=== PATIENT | male | born 1960 | race Caucasian/White ===

== ENCOUNTER → 2019-06-04 07:04 | Outpatient (CLI) | payer BC, SELFPAY ==
--- NOTE | 2019-06-04 07:06 | DI.US.S_ITS ---
PROCEDURE: US ABDOMEN COMPLETE INDICATIONS: BLOATING TECHNIQUE: Real-time scanning was performed of the abdominal and retroperitoneal organs, with image documentation. COMPARISON: [facility], CT, ABDOMEN/PELVIS WITH CONTRAST, 03/02/2010, 2:25. FINDINGS: Liver: The liver demonstrates normal size. The liver demonstrates generalized increased echogenicity. This decreases ultrasound sensitivity for detection of hepatic masses. Within the left lobe of the liver, there is a hypoechoic nonvascular lesion seen that measures 6.5 x 5.3 x 6 cm. Areas of likely focal sparing can be seen adjacent to the gallbladder, measuring up to 1.5 and 1.8 cm. Gallbladder: No findings of gallstones or sludge are seen. The gallbladder wall is not thickened, measuring 3 mm or less. No specific pericholecystic fluid is seen. The sonographic Rojas sign is negative. Biliary ducts: Intrahepatic bile ducts are non-dilated. Extrahepatic bile duct caliber measures 5 mm. Normal is 6-7 mm or less in diameter, or 10 mm or less post-cholecystectomy. Pancreas: Visualized portions of the pancreas are sonographically normal. Spleen: Spleen is normal in size and homogeneous in echotexture. Kidneys: Kidneys are normal in size and echotexture. Right kidney measures 11.2 cm long; left kidney measures 10.6 cm long. No hydronephrosis or nephrolithiasis. No solid masses. There is a 2.2 cm left cortical cyst seen. Aorta: Visualized aorta is normal in caliber at less than 3 cm. Iliacs: Proximal common iliac arteries are normal in caliber at less than 2.5 cm. IVC: Intrahepatic inferior vena cava is patent. Miscellaneous: No free abdominal fluid. At the area of pain within the periumbilical region, no focal abnormalities are seen. IMPRESSION: Fatty liver is seen. Areas of focal fatty sparing can be seen. There is a low echogenicity region seen within the left lobe of the liver that measures up to 6.5 cm, which may represent an additional focus of focal fatty sparing. If clinically appropriate, please consider a dedicated liver protocol MRI (without and with contrast) for further evaluation (assuming that there is no contraindication). A 2.2 cm left renal cyst is incidentally noted. No abnormalities can be seen within the region of periumbilical pain. Dictated by: Hayden Saucedo M.D. on 06/04/2019 at 9:09 Approved by: Hayden Saucedo M.D. on 06/04/2019 at 9:14
[2019-06-04 08:11] LABS: Hematocrit 49.6 % (41-53); Mean Corpuscular HGB Conc 34.4 % (30-36); Mean Corpuscular Hemoglobin 33.5 PG (26-34); Mean Corpuscular Volume 97.5 fL (80-100); Platelet Count 164 X10^3/uL (150-400); Red Blood Cell Count 5.09 X10^6/uL (4.5-5.9)
[2019-06-04 09:00] LABS: Alanine Aminotransferase 146 IU/L (21-72); Albumin 4.4 g/dL (3.5-5.0); Albumin Globulin Ratio 1.8 (1.0-2.8); Alkaline Phosphatase 66 U/L (38-126); Aspartate Aminotransferase 130 IU/L (17-59); BUN Creatinine Ratio 14.5 (6-22); Bilirubin Total 0.8 mg/dL (0.2-1.3); Blood Urea Nitrogen 16 mg/dL (9-20); Calcium 9.6 mg/dL (8.4-10.2); Carbon Dioxide 25 mmol/L (22-32); Chloride 108 mmol/L (98-107); Cholesterol 206 mg/dL (140-199); Estimated Glomerular Filt Rate > 60.0 mL/min (>60); Globulin 2.5 g/dL (1.7-4.1); Glucose 104 mg/dL (70-100); HDL Cholesterol 46 mg/dL (40-60); HEMOLYSIS < 15 (0-50); Potassium 4.8 mmol/L (3.4-5.1); Sodium 141 mmol/L (137-145); Total Protein 6.9 g/dL (6.3-8.2); Triglycerides 452 mg/dL (35-150); Uric Acid 8.1 mg/dL (3.5-8.5)
[2019-06-04 09:26] LABS: TSH w/ Reflex to FT4 1.27 uIU/mL (0.47-4.68)
[2019-06-04 10:05] LABS: Folate 15.3 ng/mL (2.76-20.0); Vitamin B12 651 pg/mL (239-931)
== END ==
PROVIDERS: PCP Nurse Practitioner Family; Visit Provider Nurse Practitioner Family
DX: R14.0 Abdominal distension (gaseous) (principal); K76.0 Fatty (change of) liver, not elsewhere classified; N28.1 Cyst of kidney, acquired; R53.83 Other fatigue; M10.9 Gout, unspecified; Z13.6 Encounter for screening for cardiovascular disorders
CPT/HCPCS: 36415; 76700; 80053; 80061; 82607; 82746; 84443; 84550; 85027

== ENCOUNTER → 2019-06-06 08:00 | Outpatient (CLI) | payer BC, SELFPAY ==
[2019-06-08 17:21] LABS: Hepatitis A Antibody IgM NONREACTIVE (NONREACTIVE); Hepatitis Acute Panel Interp 0.02; Hepatitis B Core Antibody IgM NONREACTIVE (NONREACTIVE); Hepatitis B Surface Antigen NONREACTIVE (NONREACTIVE); Hepatitis C Antibody NONREACTIVE
[2019-06-08 19:02] LABS: ANA Screen, IFA Negative (Negative)
== END ==
PROVIDERS: PCP Nurse Practitioner Family; Visit Provider Nurse Practitioner Family
DX: R94.5 Abnormal results of liver function studies (principal); R74.8 Abnormal levels of other serum enzymes
CPT/HCPCS: 36415; 80074; 86038; 86255; 86376

== ENCOUNTER → 2019-06-09 06:01 | Outpatient (CLI) | payer BC, SELFPAY ==
--- NOTE | 2019-06-09 06:03 | DI.MRI.S_ITS ---
PROCEDURE: MR ABDOMEN WO/W CON INDICATIONS: Hypoechoic lesion in the liver on ultrasound. TECHNIQUE: Coronal HASTE, axial 2D FLASH in- and [id number]; axial breath-hold T2 FSE. Dynamic axial VIBE during the administration of contrast; post-contrast coronal VIBE or 2D FLASH with fat saturation from the hepatic dome to the iliac crests. Optional diffusion weighted imaging and ADC may be performed. COMPARISON: [facility], CT, ABDOMEN/PELVIS WITH CONTRAST, 03/02/2010, 2:25. [facility], US, US ABDOMEN COMPLETE, 06/04/2019, 7:20. FINDINGS: Image quality: Excellent. Lung bases: No basal pleural effusions. Heart size is normal. Solid organs: There is diffuse signal dropout within the liver on [id number] imaging consistent with fatty infiltration. There are areas of relative sparing along the gallbladder fossa including a confluent region posteriorly in the left hepatic lobe within segments 2 and 3 measuring up to 5.4 x 5.5 cm in transverse dimension which corresponds to the findings on recent ultrasound. This demonstrates no mass effect on adjacent crossing vessels or differential enhancement. No evidence of associated washout. There are also a few small hepatic cysts noted. The gallbladder appears within normal limits without gallstones. No biliary ductal dilatation. Pancreas is normal in morphology without pancreatic duct dilatation. No peripancreatic edema. Spleen is normal in size and enhancement. No adrenal nodules. Kidneys demonstrate no hydronephrosis. There are multiple small bilateral renal cysts. Nodes and vessels: No retroperitoneal or mesenteric adenopathy by size criteria. Aorta and inferior vena cava are normal in size. Bowel and peritoneum: Visualized bowel loops are normal in caliber. No free fluid. Bones and soft tissues: No ventral hernias. Bone marrow is normal in overall signal. IMPRESSION: 1. Hepatic steatosis with areas of focal fatty sparing including a confluent region in the posterior left hepatic lobe corresponding to the findings on recent ultrasound. The appearance is similar to the prior CT of 03/02/10. No evidence of a hepatoma. Dictated by: Greg Ross M.D. on 06/09/2019 at 8:33 Approved by: Greg Ross M.D. on 06/09/2019 at 8:46
== END ==
PROVIDERS: PCP Nurse Practitioner Family; Visit Provider Nurse Practitioner Family
DX: R93.2 Abnormal findings on diagnostic imaging of liver and biliary tract (principal); K76.0 Fatty (change of) liver, not elsewhere classified
CPT/HCPCS: 74183

== ENCOUNTER 2019-07-10 07:25 | Day surgery (SDC) | payer BC, SELFPAY ==
--- NOTE | 2019-07-10 | PATH_ITS ---
[facility] Accession Number: [id number] . 01 Material submitted: . rectum - RECTAL POLYP AT 10 CM . 01 Clinical history: . SCREENING COLONOSCOPY . 02 Diagnosis: Rectum, Polyp At 10 CM, Biopsy: Hyperplastic polyp. [facility]/07/13/2019 . 02 Electronically signed: . Janie Pardo MD, Pathologist NPI- [id number] . 01 Gross description: . RECTAL POLYP AT 10 CM: Received in formalin is 1 fragment(s) of fishman, soft tissue measuring 0.5 x 0.4 x 0.3 cm submitted entirely in 1 cassette(s) /CKI /CKI . 02 Pathologist provided ICD-10: K62.1 . 02 CPT . 785356 Performed at: 01 [facility] [address], [place], [place] [id number] MD Greg Han MD Phone: [phone] Performed at: 02 [facility] [address] [place], [place] [id number] MD Janie Pardo MD Phone: [phone]
[2019-07-10] MEDS: SODIUM CHLORIDE 0.9% 1,000 ML 100 ML IV (07:45)
[2019-07-10 07:55] VITALS: BP 128/85; PULSE 90; RESP 16; TEMP 37.2; O2SAT 97; BMI 28.6
--- NOTE | 2019-07-10 09:03 | PM.HP.1 ---
History of Present Illness Date Patient Seen: 07/10/19 Time Patient Seen: 09:04 Chief complaint: [id number] SCREENING COLONOSCOPY Narrative: Patient here for screening colonoscopy has had a prior exam with no polyps noted. He is asymptomatic. Patient History Medical History Elevated cholesterol (Acute) Gout (Acute) Kidney stones (Acute) Social History household members: spouse Smoking Status: Current every day smoker (1/2 ppd) Tobacco: How many years used: 30 quit status: considering quitting (Patient given smoking cessation handouts) second hand exposure: No alcohol intake: current (3 beers 4x/week) substance use type: does not use Family & Social History Social History: household members spouse Tobacco & Substance use: Smoking Status Current every day smoker alcohol intake current Meds Home Medications Medication Instructions Recorded Confirmed Type allopurinol 300 mg tablet 300 mg PO DAILY tab 05/01/19 07/10/19 History diclofenac sodium 75 mg 75 mg PO DAILY PRN tab 05/01/19 07/10/19 History tablet,delayed release varicella-zoster glycoE [id number] 50 mcg IM ONCE #1 each 05/01/19 06/04/19 Rx adj(PF) 50 mcg/0.5 mL IM susp, kit colchicine 0.6 mg tablet 0.6 mg PO QDAY PRN #90 tab 05/07/19 06/04/19 Rx colchicine 0.6 mg PO DAILY PRN 07/10/19 07/10/19 History Allergies Allergy/AdvReac Type Severity Reaction Status Date / Time No Known Drug Allergies Allergy Verified 07/10/19 07:38 Review of Systems Review of Systems All systems reviewed & are unremarkable except as noted in HPI and below Exam Vital Signs (past 8 hours): - 07/10/19 07:55 Temperature 98.9 F Pulse Rate 90 Respiratory Rate 16 Blood Pressure 128/85 Pulse Oximetry 97 Oxygen Delivery Method Room Air Narrative Exam Narrative: Patient is alert and oriented vital signs are stable Lungs are clear with no rales or wheezes Heart regular rhythm no murmur Abdomen no organomegaly no tenderness Rectal will be done at colonoscopy Assessment & Plan Assessment & Plan narrative: Patient here for screening colonoscopy is asymptomatic. He has no questions understands the procedure
[2019-07-10] MEDS: fentaNYL 250 MCG/5 ML INJ IV (09:22)
[2019-07-10] MEDS: MIDAZOLAM 5 MG/5 ML VIAL IV (09:22)
--- NOTE | 2019-07-10 09:36 | PM.OP.ENDO ---
Operative Date/Time/Diagnoses Date of procedure: 07/10/19 Time of procedure: 09:36 Pre-op diagnosis: Screening colonoscopy Post-op diagnosis: other (2 mm rectal polyp 10 cm from the anal verge likely a hyperplastic polyp) Procedure & Clinicians Study performed: Total colonoscopy to the cecum removal of rectal polyp at 10 cm 2 mm polyp probably hyperplastic doubt it is an adenoma also patient has significant sigmoid diverticulosis Same procedure as scheduled: Yes Surgeon: Michael Davenport Procedure Notes SCOAP/Timeout: Was done Procedure in detail: The patient was properly identified during surgical pause he was given a total of 4 mg of Versed 150 micro g of fentanyl throughout the procedure which was well-tolerated. The flexible fiberoptic colonoscope inserted transanally to the cecum patient has significant sigmoid diverticulosis with no diverticulitis patient had 1 polyp identified a 2 mm hyperplastic polyp at 10 cm in the rectum this was removed and submitted no other polyps or tumors were identified procedure was well tolerated Scope withdrawal time: 10 Sedation minutes: 20 Findings: diverticulosis and polyp (2 mm rectal polyp at 10 cm) Specimen(s): other (Small rectal polyp) Complications: none Impression: Diverticulosis sigmoid and hyperplastic polyp in the rectum 2 mm Recommendations: Colonscopy in 5 years Disposition: PACU
[2019-07-10 09:37] VITALS: BP 98/61; PULSE 75; RESP 18; TEMP 36.5; O2SAT 98
[2019-07-10 09:41] VITALS: BP 98/65; PULSE 71; RESP 15; TEMP 36.5; O2SAT 97
[2019-07-10 09:46] VITALS: BP 103/67; PULSE 64; RESP 18; TEMP 36.5; O2SAT 98
[2019-07-10 09:49] VITALS: BP 100/69; PULSE 71; RESP 24; TEMP 36.5; O2SAT 97
== END 2019-07-10 10:05 | disposition home or self-care (01) ==
PROVIDERS: PCP Nurse Practitioner Family; Visit Provider Surgery
PROC: 0DJD8ZZ Inspection of Lower Intestinal Tract, Via Natural or Artificial Opening Endoscopic (ICD-10-PCS; CPT 45378; principal; 2019-07-10 08:30)
DX: Z12.11 Encounter for screening for malignant neoplasm of colon (principal); K57.30 Diverticulosis of large intestine without perforation or abscess without bleeding; K62.1 Rectal polyp; E78.00 Pure hypercholesterolemia, unspecified; F17.210 Nicotine dependence, cigarettes, uncomplicated
CPT/HCPCS: 45380; 99152; J2250; J3010

== ENCOUNTER → 2020-06-30 15:37 | Outpatient (CLI) | payer BC, SELFPAY ==
[2020-06-30 15:57] LABS: Add Manual Diff / Slide Review NO; Basophils Absolute Auto 100 /uL (0-100); Basophils Percent Auto 0.9 % (0-2); Eosinophils Absolute Auto 200 /uL (0-450); Eosinophils Percent Auto 1.7 % (2-4); Hematocrit 48.7 % (41-53); Hemoglobin 16.5 g/dL (13.5-17.5); Lymphocytes Absolute Auto 2200 /uL (1100-4500); Lymphocytes Percent Auto 17.1 % (25-40); Mean Corpuscular Hemoglobin 33.4 PG (26-34); Mean Corpuscular Volume 98.3 fL (80-100); Monocytes Absolute Auto 900 /uL (0-900); Monocytes Percent Auto 7.1 % (3-14); Neutrophils Absolute Auto 9500 /uL (1500-7000); Neutrophils Percent Auto 73.2 % (50-75); Platelet Count 189 X10^3/uL (150-400); Red Blood Cell Count 4.95 X10^6/uL (4.5-5.9); Red Cell Distribution Width 12.8 % (11.6-14.8)
[2020-06-30 16:09] LABS: Alanine Aminotransferase 57 IU/L (<50); Albumin 4.4 g/dL (3.5-5.0); Albumin Globulin Ratio 1.5 (1.0-2.8); Alkaline Phosphatase 75 U/L (38-126); Aspartate Aminotransferase 44 IU/L (17-59); BUN Creatinine Ratio 13.5 (6-22); Bilirubin Total 0.8 mg/dL (0.2-1.3); Blood Urea Nitrogen 12 mg/dL (9-20); Calcium 9.9 mg/dL (8.4-10.2); Carbon Dioxide 25 mmol/L (22-32); Chloride 106 mmol/L (98-107); Estimated Glomerular Filt Rate > 60.0 mL/min (>60); Glucose 93 mg/dL (70-100); HEMOLYSIS 30 (0-50); Potassium 4.8 mmol/L (3.4-5.1); Sodium 139 mmol/L (137-145); Total Protein 7.4 g/dL (6.3-8.2)
== END ==
PROVIDERS: PCP Nurse Practitioner Family; Referring Provider Physician Assistant; Visit Provider Physician Assistant
DX: L03.90 Cellulitis, unspecified (principal)
CPT/HCPCS: 36415; 80053; 85025

== ENCOUNTER → 2021-02-17 08:27 | Outpatient (CLI) | payer BC, SELFPAY ==
[2021-02-17 09:53] LABS: Alanine Aminotransferase 44 IU/L (<50); Albumin 4.1 g/dL (3.5-5.0); Albumin Globulin Ratio 1.6 (1.0-2.8); Alkaline Phosphatase 62 U/L (38-126); Aspartate Aminotransferase 35 IU/L (17-59); Bilirubin Total 0.4 mg/dL (0.2-1.3); Bilirubin Unconjugated 0.3 mg/dL (0.0-1.1); Cholesterol 164 mg/dL (140-199); Globulin 2.6 g/dL (1.7-4.1); HDL Cholesterol 42 mg/dL (40-60); HEMOLYSIS < 15 (0-50); LDL Cholesterol Calculated 74 mg/dL (<100); Total Protein 6.7 g/dL (6.3-8.2); Triglycerides 241 mg/dL (35-150)
== END ==
PROVIDERS: PCP Nurse Practitioner Family; Referring Provider Nurse Practitioner Family; Visit Provider Nurse Practitioner Family
DX: R74.8 Abnormal levels of other serum enzymes (principal); E78.1 Pure hyperglyceridemia
CPT/HCPCS: 36415; 80061; 80076

== ENCOUNTER → 2021-04-05 12:15 | Outpatient (CLI) | payer BC, SELFPAY ==
[2021-04-05] MEDS: COVID-19 VACC #1, MRNA(MOD) 100 MCG/0.5 ML VIAL IM (12:22)
== END ==
PROVIDERS: PCP Nurse Practitioner Family; Visit Provider Internal Medicine
DX: Z23 Encounter for immunization (principal)
CPT/HCPCS: 0011A; 91301

== ENCOUNTER → 2021-05-05 07:48 | Outpatient (CLI) | payer BC, SELFPAY ==
[2021-05-05] MEDS: COVID-19 VACC #2, MRNA(MOD) 100 MCG/0.5 ML VIAL IM (07:57)
== END ==
PROVIDERS: PCP Nurse Practitioner Family; Visit Provider Internal Medicine
DX: Z23 Encounter for immunization (principal)
CPT/HCPCS: 0012A; 91301

== ENCOUNTER 2021-06-13 09:15 | Emergency (ER) | payer BC, SELFPAY ==
--- NOTE | 2021-06-13 09:33 | DI.RAD.S_ITS ---
PROCEDURE: XR ANKLE LT MIN 3V INDICATIONS: pain injury TECHNIQUE: 3 views of the ankle were acquired. COMPARISON: [facility], CR, XR CHEST 1V, 06/13/2021, 9:37. [facility], , ANKLE 3 VIEWS RIGHT, 04/21/2009, 17:52. FINDINGS: Bones: No fractures or dislocations. Ankle mortise is normally aligned. No suspicious bony lesions. The talar dome demonstrates no ana abnormality. A plantar calcaneal spur is seen. Soft tissues: No tibiotalar joint effusion. Achilles tendon appears normal. IMPRESSION: Ankle plain films within normal limits for age, with degenerative changes seen. If there is point tenderness (or other clinical suspicion for a fracture not seen on these images) then a dedicated CT could be considered for further evaluation, if clinically appropriate. Dictated by: Hayden Saucedo M.D. on 06/13/2021 at 9:00 Approved by: Hayden Saucedo M.D. on 06/13/2021 at 9:01
--- NOTE | 2021-06-13 09:33 | DI.US.S_ITS ---
PROCEDURE: US ABDOMEN LIMITED INDICATIONS: RIGHT UPPER QUADRANT PAIN TECHNIQUE: Real-time scanning was performed of the abdominal and retroperitoneal organs, with image documentation. COMPARISON: [facility], US, US ABDOMEN COMPLETE, 06/04/2019, 7:20. FINDINGS: Liver: Liver is normal in size and mildly heterogeneous in echotexture, predominantly fatty infiltrated to a significant degree. There is a simple appearing 1 cm anterior right hepatic lobe cyst and 2 areas of hypoechoic geographic morphology structures adjacent to the gallbladder fossa and at the medial left hepatic lobe, measuring up to 2.0 cm and 5.6 cm, respectively. The appearance is highly suggestive of focal sparing from otherwise diffuse prominent fatty infiltration. Gallbladder: Normal. Biliary ducts: Intrahepatic bile ducts are non-dilated. Extrahepatic bile duct caliber measures 4.7 mm. Normal is 6-7 mm or less in diameter, or 10 mm or less post-cholecystectomy. Pancreas: Visualized portions of the pancreas are sonographically normal. Spleen: Spleen is normal in size and homogeneous in echotexture. Kidneys: Kidneys are normal in size and echotexture. Right kidney measures 11.2 cm long; left kidney measures 10.6 cm long. No hydronephrosis or nephrolithiasis. No solid masses. Aorta: Visualized aorta is normal in caliber at less than 3 cm. Iliacs: Proximal common iliac arteries are normal in caliber at less than 2.5 cm. IVC: Intrahepatic inferior vena cava is patent. Miscellaneous: No free abdominal fluid. IMPRESSION: Prominent fatty infiltration throughout the liver, with 2 areas of geographic fatty sparing resulting in low echotexture liver parenchyma as discussed above. Please correlate for etiology of hepatic steatosis. No additional abnormality found. Dictated by: Sathish Watkins M.D. on 06/13/2021 at 10:34 Approved by: Sathish Watkins M.D. on 06/13/2021 at 10:38
--- NOTE | 2021-06-13 09:36 | ED_ITS ---
HPI - Chest Pain General Chief Complaint: Chest Pain Stated Complaint: chest pain for 1 week Time Seen by Provider: 06/13/21 09:27 History of Present Illness HPI narrative: Patient is a 60-year-old male with history of gout presenting a with epigastric pain on going over the last 4 days. He said he noticed it while he was doing yd work. It is fairly constant is does not seem to get any worse with exertion or better with rest. It is nonradiating. He denies any nausea or vomiting. He says maybe he experiences some shortness of breath with exertion but not significantly. He also took today is left ankle 2 days ago signs acute feels like might be getting worse as well. He is able to ambulate on it. Duration: constant Onset: during exertion Pain location: epigastric Severity: mild Related Data Previous Rx's Medication Instructions Recorded varicella-zoster glycoE [id number] 50 mcg IM ONCE #1 each 05/01/19 adj(PF) 50 mcg/0.5 mL IM susp, kit (Shingrix (PF)) colchicine 0.6 mg tablet 0.6 mg PO DAILY PRN #90 tab 06/21/20 right wrist splint #1 ea 06/21/20 meloxicam 15 mg tablet 15 mg PO DAILY #90 tab 02/14/21 allopurinol 300 mg tablet 300 mg PO DAILY #90 tab 02/24/21 Allergies Allergy/AdvReac Type Severity Reaction Status Date / Time No Known Drug Allergies Allergy Verified 06/30/20 14:14 Review of Systems Review of Systems Narrative: GENERAL: Denies chills, fatigue, malaise, fever, sweats, travel HEENT: Denies sinus pain, ear pain, sore throat, difficulty swallowing, neck pain RESPIRATORY: Denies dyspnea, cough, wheezing, hemoptysis, sputum. CARDIOVASCULAR:+ epigastric pain, denies palpitations or dizziness GASTROINTESTINAL: Denies nausea, vomiting, abdominal pain, diarrhea, constipation, melena. : Denies dysuria, frequency, incontinence, hematuria, urinary retention, flank pain. MUSCULOSKELETAL: Left ankle pain and swelling SKIN: No rash, no erythema, no pruritus NEUROLOGIC: Denies weakness, dizziness, headache, numbness, change in speech, confusion PSYCHIATRIC: No concerning psychosocial issues. 12 point review of systems is negative except for those stated above and HPI Patient History Medical History (Updated 06/13/21 @ 12:09 by Anamaria Beltrán DO) Elevated cholesterol Elevated liver enzymes Gout Kidney stones Knee pain, bilateral Right wrist pain Social History household members: spouse Smoking Status: Current every day smoker Tobacco: How many years used: 30 quit status: considering quitting (Patient given smoking cessation handouts) second hand exposure: No alcohol intake: current (3 beers 4x/week) substance use type: does not use Smoking Status: Current every day smoker (1/2 ppd) Exam Initial Vital Signs Initial Vital Signs: Vital Signs Temperature 98.3 F 06/13/21 09:57 Pulse Rate 80 06/13/21 09:57 Respiratory Rate 16 06/13/21 09:57 Blood Pressure 130/77 06/13/21 09:57 Pulse Oximetry 99 06/13/21 09:57 GENERAL: Alert well-appearing 60-year-old male and in no acute distress. HEENT: Head atraumatic,EOMI, pupils reactive, face symmetric, moist mucous membranes CARDIOVASCULAR: Regular rate and rhythm without murmurs, rubs or gallops. RESPIRATORY: Breath sounds equal bilaterally, no wheezes rales or rhonchi. ABDOMEN: Soft, epigastric pain mild right upper quadrant tenderness very slight Rojas sign no guarding or rebound EXTREMITIES: Normal range of motion, no clubbing or edema. Neurovascularly intact NEUROLOGICAL: Alert and oriented x4.Normal gait and speech. SKIN: Warm, dry, no laceration, no petechiae, no rashes or lesions. Scores HEART Score Heart Score history: Moderately Suspicious Heart Score EKG: Normal Heart Score Age: 45-64 years old Heart Score risk factors: 1-2 risk factors Heart Score troponin: < or = to normal limit Heart Score Total: 3 Course Orders Ordered: Discontinued Medications Aspirin (Aspirin 81 Mg Chew Tab) 324 mg PO NOW ONE Stop: 06/13/21 09:34 Last Admin: 06/13/21 09:52 Dose: 324 mg Documented by: [email or web address] Nitroglycerin (Nitroglycerin 0.4 Mg Sl Tab) 0.4 mg SL NOW ONE Stop: 06/13/21 10:55 Last Admin: 06/13/21 11:29 Dose: 0.4 mg Documented by: [email or web address] Pantoprazole Sodium (Pantoprazole 40 Mg Vial) 40 mg IV NOW ONE Stop: 06/13/21 10:55 Last Admin: 06/13/21 11:29 Dose: 40 mg Documented by: ELIZABETH Vital Signs Vital signs: Vital Signs - 8 hr 06/13/21 11:30 06/13/21 12:00 Pulse Rate 71 77 Respiratory Rate 27 H Blood Pressure 130/75 136/77 Pulse Oximetry 98 97 MDM - Chest Pain Lab Data Result diagrams: 06/13/21 10:03 06/13/21 10:03 Labs: Lab Results 06/13/21 06/13/21 Range/Units 10:03 10:03 WBC 10.1 (4.5-11.0) X10^3/uL RBC 4.70 (4.5-5.9) X10^6/uL Hgb 15.9 (13.5-17.5) g/dL Hct 46.7 (41-53) % MCV 99.4 (80-100) fL MCH 33.9 (26-34) PG MCHC 34.1 (30-36) % RDW 13.0 (11.6-14.8) % Plt Count 178 (150-400) X10^3/uL Neut % (Auto) 73.5 (50-75) % Lymph % (Auto) 15.8 L (25-40) % [place] % (Auto) 8.7 (3-14) % Eos % (Auto) 1.2 L (2-4) % Baso % (Auto) 0.8 (0-2) % Neut # (Auto) 7400 H (0812-1728) /uL Lymph # (Auto) 1600 (3820-3440) /uL [place] # (Auto) 900 (0-900) /uL Eos # (Auto) 100 (0-450) /uL Baso # (Auto) 100 (0-100) /uL Sodium 140 (137-145) mmol/L Potassium 4.5 (3.4-5.1) mmol/L Chloride 109 H (98-107) mmol/L Carbon Dioxide 27 (22-32) mmol/L BUN 15 (9-20) mg/dL Creatinine 0.88 (0.66-1.25) mg/dL Estimated GFR > 60.0 (>60) mL/min BUN/Creatinine Ratio 17.0 (6-22) Glucose 97 (70-100) mg/dL Calcium 9.3 (8.4-10.2) mg/dL Total Bilirubin 0.8 (0.2-1.3) mg/dL AST 30 (17-59) IU/L ALT 34 (<50) IU/L Alkaline Phosphatase 69 (38-126) U/L Total Creatine Kinase 53 L (55-170) U/L CK-MB (CK-2) TNP CK-MB (CK-2) Rel Index TNP Troponin I < 0.012 (0.01-0.034) ng/mL Total Protein 7.0 (6.3-8.2) g/dL Albumin 4.0 (3.5-5.0) g/dL Globulin 3.0 (1.7-4.1) g/dL Albumin/Globulin Ratio 1.3 (1.0-2.8) Lipase 50 (23-300) U/L Imaging Data Chest x-ray: Radiologist's Impression: PROCEDURE: XR CHEST 1V INDICATIONS: chest pain TECHNIQUE: One view of the chest was acquired. COMPARISON: [facility], CR, XR ANKLE LT MIN 3V, 06/13/2021, 9:37. [facility], CR, CHEST 2 VIEW, 12/05/2009, 13:17. FINDINGS: Surgical changes and devices: None. Lungs and pleura: Lungs are clear. No pleural effusions or pneumothorax. Mediastinum: Mediastinal contours appear normal. Heart size is normal. Bones and chest wall: No suspicious bony lesions. S-shaped scoliotic curvature is seen. Age-appropriate bony degenerative changes are seen. Overlying soft tissues appear unremarkable. IMPRESSION: Portable chest within normal limits for age. Dictated by: Hayden Saucedo M.D. on 06/13/2021 at 8:59 US - abdomen: Radiologist's Impression: PROCEDURE: US ABDOMEN LIMITED INDICATIONS: RIGHT UPPER QUADRANT PAIN TECHNIQUE: Real-time scanning was performed of the abdominal and retroperitoneal organs, with image documentation. COMPARISON: [facility], US, US ABDOMEN COMPLETE, 06/04/2019, 7:20. FINDINGS: Liver: Liver is normal in size and mildly heterogeneous in echotexture, predominantly fatty infiltrated to a significant degree. There is a simple appearing 1 cm anterior right hepatic lobe cyst and 2 areas of hypoechoic geographic morphology structures adjacent to the gallbladder fossa and at the medial left hepatic lobe, measuring up to 2.0 cm and 5.6 cm, respectively. The appearance is highly suggestive of focal sparing from otherwise diffuse prominent fatty infiltration. Gallbladder: Normal. Biliary ducts: Intrahepatic bile ducts are non-dilated. Extrahepatic bile duct caliber measures 4.7 mm. Normal is 6-7 mm or less in diameter, or 10 mm or less post-cholecystectomy. Pancreas: Visualized portions of the pancreas are sonographically normal. Spleen: Spleen is normal in size and homogeneous in echotexture. Kidneys: Kidneys are normal in size and echotexture. Right kidney measures 11.2 cm long; left kidney measures 10.6 cm long. No hydronephrosis or nephrolithiasis. No solid masses. Aorta: Visualized aorta is normal in caliber at less than 3 cm. Iliacs: Proximal common iliac arteries are normal in caliber at less than 2.5 cm. IVC: Intrahepatic inferior vena cava is patent. Miscellaneous: No free abdominal fluid. IMPRESSION: Prominent fatty infiltration throughout the liver, with 2 areas of geographic fatty sparing resulting in low echotexture liver parenchyma as disc ussed above. Please correlate for etiology of hepatic steatosis. No additional abnormality found. Dictated by: Sathish Watkins M.D. on 06/13/2021 at 10:34 Extremity x-ray #1: Radiologist's Impression: PROCEDURE: XR ANKLE LT MIN 3V INDICATIONS: pain injury TECHNIQUE: 3 views of the ankle were acquired. COMPARISON: [facility], CR, XR CHEST 1V, 06/13/2021, 9:37. [facility], CR, ANKLE 3 VIEWS RIGHT, 04/21/2009, 17:52. FINDINGS: Bones: No fractures or dislocations. Ankle mortise is normally aligned. No suspicious bony lesions. The talar dome demonstrates no ana abnormality. A plantar c alcaneal spur is seen. Soft tissues: No tibiotalar joint effusion. Achilles tendon appears normal. IMPRESSION: Ankle plain films within normal limits for age, with degenerative changes seen. If there is point tenderness (or other clinical suspicion for a fracture not seen on these images) then a dedicated CT could be considered for further evaluation, if clinically appropriate. Dictated by: Hayden Saucedo M.D. on 06/13/2021 at 9:00 ECG Data Interpretation: EKG 1. Sinus rhythm rate 75 MD interval 168 QRS [address] changes no T-wave inversion EKG 2. Normal sinus rhythm rate 72 MD interval 168 QRS [address] changes MDM Narrative Medical decision making narrative: Patient has epigastric pain it is relatively unchanged with Toradol and nitro. He has a negative his ultrasound and normal blood work. There is concern for is coronary artery disease. He has a heart score of 3. His I have offered him admission to the hospital with stress test is versus outpatient follow-up. Patient's symptoms have been ongoing for a number of days they do not seem to be getting any worse. The real reason he is here is her his worsening ankle pain. The patient is opting to go home. I have discussed both with he and his importance of staying and that MRI and coronary artery disease has not been completely ruled out. Strongly recommended stress test. I did call primary care provider to see if we could get 1 set up for him soon as possible however they said it could take up to a number of weeks to get it approved. Patient still is electing to go home. I discussed all findings with the patient and , Education has been performed regarding treatment plan, diagnosis, warning signs and symptoms and all concerns have been addressed. Verbally agree with and understood all of the above. The patient is clinically sober, free from distracting injury, appears to have intact insight, judgment and reason. Does not meet criteria for involuntary hospitalization. Patient has the capacity to make decisions. Discharge Plan Departure Patient Disposition: Home Clinical Impression: Atypical chest pain Left ankle sprain Qualifiers: Encounter type: initial encounter Involved ligament of ankle: unspecified ligament Qualified Code(s): S93.402A - Sprain of unspecified ligament of left ankle, initial encounter Instructions: DI for Atypical Chest Pain Activity Restrictions/Additional Instructions: *You have been diagnosed with atypical chest pain *What to do: At this time I strongly advise you to have a stress test. You were offered to stay in the hospital and have a stress test done here however opting to go home. Please call PCP office today to schedule up appointment as soon as possible. If you are having any worsening or changing your chest discomfort please call 911 return to the emergency department immediately. You have not been completely ruled out for cardiac disease. However blood work an EKG today are overall reassuring. Please use crutches as needed for left ankle sprain. Elevate and ice. May start weight-bearing as tolerated. *Continue to take medications as directed *Follow up with your primary care provider, call today to schedule appointment as soon as possible *Return to ER if you should have any new, worsening or concerning symptoms Prescriptions: No Action meloxicam 15 mg tablet 15 mg PO DAILY Qty: 90 RF: 1 allopurinol 300 mg tablet 300 mg PO DAILY Qty: 90 RF: 0 Shingrix (PF) 50 mcg/0.5 mL suspension for reconstitution 50 mcg IM ONCE Qty: 1 RF: 0 (DME) right wrist splint Qty: 1 RF: 0 colchicine 0.6 mg tablet 0.6 mg PO DAILY PRN (Reason: Gout flare) Qty: 90 RF: 0 Referrals: Aminata Wilcox ARNP [Primary Care Provider] -
[2021-06-13] MEDS: ASPIRIN 81 MG CHEW TAB 324 MG PO (09:52)
[2021-06-13 09:57] VITALS: BP 130/77; PULSE 80; RESP 16; TEMP 36.8; O2SAT 99; BMI 30.8
[2021-06-13 10:09] LABS: Add Manual Diff / Slide Review NO; Basophils Absolute Auto 100 /uL (0-100); Basophils Percent Auto 0.8 % (0-2); Eosinophils Absolute Auto 100 /uL (0-450); Eosinophils Percent Auto 1.2 % (2-4); Hematocrit 46.7 % (41-53); Hemoglobin 15.9 g/dL (13.5-17.5); Lymphocytes Absolute Auto 1600 /uL (1100-4500); Lymphocytes Percent Auto 15.8 % (25-40); Mean Corpuscular HGB Conc 34.1 % (30-36); Mean Corpuscular Hemoglobin 33.9 PG (26-34); Mean Corpuscular Volume 99.4 fL (80-100); Monocytes Absolute Auto 900 /uL (0-900); Monocytes Percent Auto 8.7 % (3-14); Neutrophils Absolute Auto 7400 /uL (1500-7000); Neutrophils Percent Auto 73.5 % (50-75); Platelet Count 178 X10^3/uL (150-400); White Blood Cell Count 10.1 X10^3/uL (4.5-11.0)
[2021-06-13 10:21] LABS: Alanine Aminotransferase 34 IU/L (<50); Albumin Globulin Ratio 1.3 (1.0-2.8); Alkaline Phosphatase 69 U/L (38-126); Aspartate Aminotransferase 30 IU/L (17-59); Bilirubin Total 0.8 mg/dL (0.2-1.3); Blood Urea Nitrogen 15 mg/dL (9-20); Calcium 9.3 mg/dL (8.4-10.2); Carbon Dioxide 27 mmol/L (22-32); Chloride 109 mmol/L (98-107); Creatine Kinase 53 U/L (55-170); Estimated Glomerular Filt Rate > 60.0 mL/min (>60); Glucose 97 mg/dL (70-100); HEMOLYSIS < 15 (0-50); Lipase 50 U/L (23-300); Potassium 4.5 mmol/L (3.4-5.1); Sodium 140 mmol/L (137-145)
[2021-06-13 10:32] LABS: Troponin I < 0.012 ng/mL (0.01-0.034)
[2021-06-13 10:59] VITALS: PULSE 76; O2SAT 99
[2021-06-13 11:00] VITALS: BP 130/61; PULSE 77; O2SAT 100
[2021-06-13 11:23] VITALS: BP 130/61; PULSE 89; RESP 14; O2SAT 100
[2021-06-13] MEDS: NITROGLYCERIN 0.4 MG SL TAB SL (11:29)
[2021-06-13] MEDS: PANTOPRAZOLE 40 MG VIAL IV (11:29)
[2021-06-13 11:30] VITALS: BP 130/75; PULSE 71; O2SAT 98
[2021-06-13 12:00] VITALS: BP 136/77; PULSE 77; RESP 27; O2SAT 97
== END 2021-06-13 12:15 | disposition home or self-care (01) ==
PROVIDERS: Emergency Provider Emergency Medicine; PCP Nurse Practitioner Family
DX: R07.89 Other chest pain (principal); S93.402A Sprain of unspecified ligament of left ankle, initial encounter
CPT/HCPCS: 36415; 71045; 73610; 76705; 80053; 82550; 83690; 84484; 85025; 93005; 93010; 96374; 99284; C9113

== ENCOUNTER → 2021-06-27 15:42 | Outpatient (CLI) | payer BC, SELFPAY ==
[2021-06-27 16:42] LABS: Uric Acid 7.5 mg/dL (3.5-8.5)
== END ==
PROVIDERS: PCP Nurse Practitioner Family; Referring Provider Nurse Practitioner Family; Visit Provider Nurse Practitioner Family
DX: M10.9 Gout, unspecified (principal)
CPT/HCPCS: 36415; 84550

== ENCOUNTER 2021-07-09 18:27 | Observation (INO) | payer BC, SELFPAY ==
[2021-07-09] VITALS (8 sets, daily range): BP systolic 118–156; BP diastolic 69–94; PULSE 55–86; RESP 10–22; TEMP 36.4–37.2; O2SAT 95–99; BMI 27.1
--- NOTE | 2021-07-09 18:41 | DI.RAD.S_ITS ---
PROCEDURE: XR CHEST 1V INDICATIONS: chest pain TECHNIQUE: One view of the chest was acquired. COMPARISON: [facility], CR, XR CHEST 1V, 06/13/2021, 9:37. FINDINGS: Surgical changes and devices: None. Lungs and pleura: Lungs are clear. No pleural effusions or pneumothorax. Mediastinum: Mediastinal contours appear normal. Heart size is normal. Bones and chest wall: No suspicious bony lesions. Overlying soft tissues appear unremarkable. IMPRESSION: No acute disease. Dictated by: Dmitriy Jacinto M.D. on 07/09/2021 at 19:29 Approved by: Dmitriy Jacinto M.D. on 07/09/2021 at 19:29
[2021-07-09 18:47] LABS: Add Manual Diff / Slide Review NO; Basophils Absolute Auto 100 /uL (0-100); Basophils Percent Auto 0.7 % (0-2); Eosinophils Absolute Auto 400 /uL (0-450); Hemoglobin 15.8 g/dL (13.5-17.5); Lymphocytes Absolute Auto 2500 /uL (1100-4500); Lymphocytes Percent Auto 30.8 % (25-40); Mean Corpuscular HGB Conc 34.3 % (30-36); Mean Corpuscular Hemoglobin 33.3 PG (26-34); Mean Corpuscular Volume 97.3 fL (80-100); Monocytes Absolute Auto 500 /uL (0-900); Monocytes Percent Auto 6.7 % (3-14); Neutrophils Absolute Auto 4600 /uL (1500-7000); Neutrophils Percent Auto 56.8 % (50-75); Platelet Count 181 X10^3/uL (150-400); Red Blood Cell Count 4.73 X10^6/uL (4.5-5.9); Red Cell Distribution Width 12.9 % (11.6-14.8); White Blood Cell Count 8.2 X10^3/uL (4.5-11.0)
[2021-07-09 18:57] LABS: Alanine Aminotransferase 21 IU/L (<50); Albumin Globulin Ratio 1.5 (1.0-2.8); Alkaline Phosphatase 73 U/L (38-126); Aspartate Aminotransferase 24 IU/L (17-59); BUN Creatinine Ratio 17.2 (6-22); Bilirubin Total 0.5 mg/dL (0.2-1.3); Blood Urea Nitrogen 16 mg/dL (9-20); Calcium 9.4 mg/dL (8.4-10.2); Carbon Dioxide 24 mmol/L (22-32); Chloride 110 mmol/L (98-107); Creatine Kinase 101 U/L (55-170); Estimated Glomerular Filt Rate > 60.0 mL/min (>60); Globulin 2.6 g/dL (1.7-4.1); Glucose 132 mg/dL (70-100); Lipase 73 U/L (23-300); Potassium 3.7 mmol/L (3.4-5.1); Sodium 142 mmol/L (137-145); Total Protein 6.6 g/dL (6.3-8.2)
--- NOTE | 2021-07-09 19:03 | ED_ITS ---
HPI - Chest Pain General Chief Complaint: Chest Pain Stated Complaint: CHEST PAIN/LIGHTHEADED/NAUSEA Time Seen by Provider: 07/09/21 18:48 Source: patient Mode of arrival: Ambulatory Limitations: no limitations History of Present Illness HPI narrative: Patient is a 60-year-old male who presents with left-sided chest pain and ongoing nausea. He was actually seen and evaluated here June 13Her ankle pain and epigastric pain. At that time it is epigastric pain was worse while he was doing yd work is. I recommended that he stay in the hospital and get a stress test however my he opted to go home and follow-up. He did see his primary care provider he has a stress test scheduled however over the last 4 days he has continue to feel nauseated and has some left-sided discomfort. It is difficult for him to describe he says it is worse on the left side worse when he palpates it, it does not hurt when he moves his left arm. He describes it as a pressure. It is not constant. It is nonradiating. Does not seem to be exertional. Related Data Home Medications Medication Instructions Recorded Confirmed allopurinol 100 mg tablet 400 mg PO DAILY 07/09/21 07/09/21 Previous Rx's Medication Instructions Recorded varicella-zoster glycoE [id number] 50 mcg IM ONCE #1 each 05/01/19 adj(PF) 50 mcg/0.5 mL IM susp, kit (Shingrix (PF)) right wrist splint #1 ea 06/21/20 meloxicam 15 mg tablet 15 mg PO DAILY #90 tab 02/14/21 allopurinol 300 mg tablet 300 mg PO DAILY #90 tab 06/27/21 colchicine 0.6 mg tablet 0.6 mg PO DAILY PRN #90 tab 06/27/21 Allergies Allergy/AdvReac Type Severity Reaction Status Date / Time No Known Drug Allergies Allergy Verified 06/30/20 14:14 Review of Systems Review of Systems Narrative: GENERAL: Denies chills, fatigue, malaise, fever, sweats, travel HEENT: Denies sinus pain, ear pain, sore throat, difficulty swallowing, neck pain RESPIRATORY: Denies dyspnea, cough, wheezing, hemoptysis, sputum. CARDIOVASCULAR: See HPI GASTROINTESTINAL: Denies nausea, vomiting, abdominal pain, diarrhea, constipation, melena. : Denies dysuria, frequency, incontinence, hematuria, urinary retention, flank pain. MUSCULOSKELETAL: Denies weakness, joint pain, or bony pain SKIN: No rash, no erythema, no pruritus NEUROLOGIC: Denies weakness, dizziness, headache, numbness, change in speech, confusion PSYCHIATRIC: No concerning psychosocial issues. 12 point review of systems is negative except for those stated above and HPI Patient History Medical History (Updated 07/09/21 @ 22:49 by EVAN Lyons-) Elevated cholesterol Elevated liver enzymes Fatty infiltration of liver (05/2021) Gout History of alcohol abuse Kidney stones Knee pain, bilateral Right wrist pain Tobacco abuse Surgical History (Updated 07/09/21 @ 22:49 by EVAN Lyons-VENESSA) History of carpal tunnel surgery of right wrist Family History (Updated 07/09/21 @ 22:51 by EVAN Lyons-VENESSA) Mother Cancer Father Alzheimer's dementia Social History household members: spouse and children Smoking Status: Current every day smoker Tobacco: How many years used: 30 quit status: considering quitting (Patient given smoking cessation handouts) second hand exposure: No alcohol intake: former substance use type: does not use Smoking Status: Current every day smoker alcohol intake frequency: 0-2 drinks per day Substance Use Type: does not use Exam Initial Vital Signs Initial Vital Signs: Vital Signs Pulse Rate 86 07/09/21 18:32 Pulse Oximetry 97 07/09/21 18:32 GENERAL: 60-year-old male appears well HEENT: Head atraumatic,EOMI, pupils reactive, face symmetric, moist mucous membranes CARDIOVASCULAR: Regular rate and rhythm without murmurs, rubs or gallops. Pain is not reproduced arm RESPIRATORY: Breath sounds equal bilaterally, no wheezes rales or rhonchi. ABDOMEN: Soft, nontender. Normoactive bowel sounds all 4 quadrants. No guarding or rebound. : No CVA tenderness EXTREMITIES: Normal range of motion, no clubbing or edema. Neurovascularly inta ct NEUROLOGICAL: Alert and oriented x4.Normal gait and speech SKIN: Warm, dry, no laceration, no petechiae, no rashes or lesions. Course Orders Ordered: ED Orders 07/09/21 19:56 COVID19 - ADMIT (PHARMACY BENEFIT MANAGER swab/PCR) Stat 07/09/21 20:40 EC echo doppler complete Urgent NM ken perf SPECT rest & str Urgent 07/09/21 20:41 Education, smoking cessation ONGOING 07/09/21 21:05 Troponin I Q8H 07/10/21 04:45 Troponin I Q8H Acetaminophen (Acetaminophen 325 Mg Tablet) 650 mg PO Q6HR PRN PRN Reason: Fever/Mild Pain (1-3) Al Hydrox/Mg Hydrox/Simethicone (Mag Hydrox/Alum/Simeth 30 Ml Udc) 30 ml PO Q6HR PRN PRN Reason: Dyspepsia Diclofenac Sodium (Diclofenac 1% Gel 100 Gm) 1 applic TOP QID PRN PRN Reason: Pain, Mild (1-3) Enoxaparin Sodium (Enoxaparin 40 Mg/0.4 Ml Syringe) 40 mg SUBCUT DAILY [facility] Sodium Chloride (Normal Saline 0.9%) 1,000 mls @ 84 mls/hr IV CONT ANGELINE Last Admin: 07/09/21 22:26 Dose: 84 mls/hr Documented by: JUDY Clindamycin Phosphate (Cleocin) 600 mg in 50 mls @ 50 mls/hr IV Q8H ANGELINE Last Infusion: 07/09/21 23:50 Dose: 0 mls/hr Documented by: Admin: 07/09/21 22:43 Dose: 50 mls/hr Documented by: JUDY Levofloxacin (Levaquin) 750 mg in 150 mls @ 100 mls/hr IV Q24H ANGELINE Last Infusion: 07/10/21 01:30 Dose: 0 mls/hr Documented by: Admin: 07/09/21 23:47 Dose: 100 mls/hr Documented by: YESSY Magnesium Hydroxide (Magnesium Hydroxide 30 Ml Udc) 30 ml PO DAILY PRN PRN Reason: Constipation Morphine Sulfate (Morphine 2 Mg/Ml Inj) 2 mg IV Q5MIN PRN PRN Reason: Chest Pain Naloxone HCl (Naloxone 0.4 Mg/Ml Vial) 0.2 mg IV Q2MIN PRN PRN Reason: Opiate Reversal Nitroglycerin (Nitroglycerin 0.4 Mg Sl Tab) 0.4 mg SL [id number] PRN PRN Reason: Chest Pain Ondansetron HCl (Ondansetron 4 Mg Odt) 4 mg PO Q8HR PRN PRN Reason: Nausea And Vomiting Discontinued Medications Aspirin (Aspirin 81 Mg Chew Tab) 324 mg PO NOW ONE Stop: 07/09/21 19:06 Last Admin: 07/09/21 19:18 Dose: 324 mg Documented by: MATT Whittington Hydrox/Mg Hydrox/Simethicone 20 ml/ Lidocaine HCl 15 ml 0 ml PO NOW ONE Stop: 07/09/21 21:59 Last Admin: 07/09/21 22:31 Dose: 10 ml Documented by: JUDY Clindamycin Phosphate (Cleocin) 600 mg in 50 mls @ 50 mls/hr IV Q8H [facility] Last Admin: 07/09/21 23:08 Dose: Not Given Documented by: JUDY Levofloxacin (Levaquin) 750 mg in 150 mls @ 100 mls/hr IV Q24H [facility] Last Admin: 07/09/21 23:09 Dose: Not Given Documented by: JUDY Ketorolac Tromethamine (Ketorolac 30 Mg/Ml Vial) 30 mg IV NOW ONE Stop: 07/09/21 22:01 Last Admin: 07/09/21 22:43 Dose: 30 mg Documented by: JUDY Vital Signs Vital signs: Vital Signs - 8 hr 07/09/21 18:38 Temperature 99.0 F Pulse Rate 76 Respiratory Rate 18 Blood Pressure 138/82 Pulse Oximetry 99 MDM - Chest Pain Lab Data Result diagrams: 07/09/21 18:38 07/09/21 18:38 Labs: Lab Results 07/09/21 07/09/21 07/09/21 Range/Units 18:38 18:38 18:38 WBC 8.2 (4.5-11.0) X10^3/uL RBC 4.73 (4.5-5.9) X10^6/uL Hgb 15.8 (13.5-17.5) g/dL Hct 46.0 (41-53) % MCV 97.3 (80-100) fL MCH 33.3 (26-34) PG MCHC 34.3 (30-36) % RDW 12.9 (11.6-14.8) % Plt Count 181 (150-400) X10^3/uL Neut % (Auto) 56.8 (50-75) % Lymph % (Auto) 30.8 (25-40) % [place] % (Auto) 6.7 (3-14) % Eos % (Auto) 5.0 H (2-4) % Baso % (Auto) 0.7 (0-2) % Neut # (Auto) 4600 (6162-3627) /uL Lymph # (Auto) 2500 (8333-5061) /uL [place] # (Auto) 500 (0-900) /uL Eos # (Auto) 400 (0-450) /uL Baso # (Auto) 100 (0-100) /uL Sodium 142 (137-145) mmol/L Potassium 3.7 (3.4-5.1) mmol/L Chloride 110 H (98-107) mmol/L Carbon Dioxide 24 (22-32) mmol/L BUN 16 (9-20) mg/dL Creatinine 0.93 (0.66-1.25) mg/dL Estimated GFR > 60.0 (>60) mL/min BUN/Creatinine Ratio 17.2 (6-22) Glucose 132 H (70-100) mg/dL Calcium 9.4 (8.4-10.2) mg/dL Magnesium (1.6-2.3) mg/dL Total Bilirubin 0.5 (0.2-1.3) mg/dL AST 24 (17-59) IU/L ALT 21 (<50) IU/L Alkaline Phosphatase 73 (38-126) U/L Total Creatine Kinase 101 (55-170) U/L CK-MB (CK-2) 0.93 (<2.37) ng/mL CK-MB (CK-2) Rel Index 0.9 L (1.5-5.0) % Troponin I < 0.012 (0.01-0.034) ng/mL NT-Pro-B Natriuret Pep (<125) pg/mL Total Protein 6.6 (6.3-8.2) g/dL Albumin 4.0 (3.5-5.0) g/dL Globulin 2.6 (1.7-4.1) g/dL Albumin/Globulin Ratio 1.5 (1.0-2.8) Triglycerides 246 H (35-150) mg/dL Cholesterol 168 (140-199) mg/dL LDL Cholesterol, Calc 87 (<100) mg/dL HDL Cholesterol 32 L (40-60) mg/dL Lipase 73 (23-300) U/L SARS-CoV-2 (PCR) (Negative) 07/09/21 07/09/21 Range/Units 18:38 19:56 WBC (4.5-11.0) X10^3/uL RBC (4.5-5.9) X10^6/uL Hgb (13.5-17.5) g/dL Hct (41-53) % MCV (80-100) fL MCH (26-34) PG MCHC (30-36) % RDW (11.6-14.8) % Plt Count (150-400) X10^3/uL Neut % (Auto) (50-75) % Lymph % (Auto) (25-40) % [place] % (Auto) (3-14) % Eos % (Auto) (2-4) % Baso % (Auto) (0-2) % Neut # (Auto) (1444-1247) /uL Lymph # (Auto) (8539-6944) /uL [place] # (Auto) (0-900) /uL Eos # (Auto) (0-450) /uL Baso # (Auto) (0-100) /uL Sodium (137-145) mmol/L Potassium (3.4-5.1) mmol/L Chloride (98-107) mmol/L Carbon Dioxide (22-32) mmol/L BUN (9-20) mg/dL Creatinine (0.66-1.25) mg/dL Estimated GFR (>60) mL/min BUN/Creatinine Ratio (6-22) Glucose (70-100) mg/dL Calcium (8.4-10.2) mg/dL Magnesium 1.9 (1.6-2.3) mg/dL Total Bilirubin (0.2-1.3) mg/dL AST (17-59) IU/L ALT (<50) IU/L Alkaline Phosphatase (38-126) U/L Total Creatine Kinase (55-170) U/L CK-MB (CK-2) (<2.37) ng/mL CK-MB (CK-2) Rel Index (1.5-5.0) % Troponin I (0.01-0.034) ng/mL NT-Pro-B Natriuret Pep 48 (<125) pg/mL Total Protein (6.3-8.2) g/dL Albumin (3.5-5.0) g/dL Globulin (1.7-4.1) g/dL Albumin/Globulin Ratio (1.0-2.8) Triglycerides (35-150) mg/dL Cholesterol (140-199) mg/dL LDL Cholesterol, Calc (<100) mg/dL HDL Cholesterol (40-60) mg/dL Lipase (23-300) U/L SARS-CoV-2 (PCR) Negative (Negative) Imaging Data Chest x-ray: Radiologist's Impression: PROCEDURE: XR CHEST 1V INDICATIONS: chest pain TECHNIQUE: One view of the chest was acquired. COMPARISON: [facility], , XR CHEST 1V, 06/13/2021, 9:37. FINDINGS: Surgical changes and devices: None. Lungs and pleura: Lungs are clear. No pleural effusions or pneumothorax. Mediastinum: Mediastinal contours appear normal. Heart size is normal. Bones and chest wall: No suspicious bony lesions. Overlying soft tissues appear unremarkable. IMPRESSION: No acute disease. Dictated by: Dmitriy Jacinto M.D. on 07/09/2021 at 19:29 ECG Data Interpretation: Normal sinus rhythm rate 83 NM interval 164 QRS [address] changes similar to previous EKG MDM Narrative Medical decision making narrative: Patient has had ongoing chest discomfort it seems to be changing over the last 4 days. He has a negative troponin and negative EKG. However it is unclear exactly when his stress test is although according to records it looks like they did schedule 1 or were planning on scheduling 1. At this time patient remains agreeable to stay in the hospital for admission and stress test. Andres KERR updated patient's symptoms test results and happily accepted Discharge Plan Departure Patient Disposition: Admitted as Observation Clinical Impression: Chest pain Admit Date/Time: 07/09/21 20:41 Admit Provider: Shellie Campos
[2021-07-09 19:08] LABS: Troponin I < 0.012 ng/mL (0.01-0.034)
[2021-07-09 19:12] LABS: CKMB % Relative Index 0.9 % (1.5-5.0); Creatine Kinase MB 0.93 ng/mL (<2.37); HEMOLYSIS 16 (0-50)
[2021-07-09] MEDS: ASPIRIN 81 MG CHEW TAB 324 MG PO (19:18)
--- NOTE | 2021-07-09 19:41 | PC.NURSE ---
patient states that his left chest hurts when he presses on it. he also states that when he inhales it kind of feels similar to pressing on it. He also states that he feels like something is sitting on his chest.
--- NOTE | 2021-07-09 20:46 | P.HP_ITS ---
History of Present Illness History of Present Illness Date Patient Seen: 07/09/21 Time Patient Seen: 20:46 Chief complaint: CHEST PAIN/LIGHTHEADED/NAUSEA Narrative: Patient is a 60-year-old male antony Alexander who presented to the ED with continueing chest pain. Patient 1st presented to the ED on 06/15/21 complaining of epigastric pain on going over 4 days. Pain while doing yard work, fairly constant is does not seem to get any worse with exertion or be tter with rest, nonradiating, and some shortness of breath with exertion but not significantly. Patients EKG was unremarkable, chest x-ray unremarkable. Discharged with diagnosis of atypical chest pain, recommendations for stress test and further workup. Patient seen by PCP on 07/24/2021: Patient stated his pain resolved after about two weeks. He denied any further epigastric, chest pain or any further associated symptoms. His PCP ordered stress test & echo which have yet to be scheduled/completed. Abdominal ultrasound reveals prominent fatty liver, his liver enzymes had returned to normal however a referral to Gastroenterology was placed. Patient also complains of gout flare, left ankle and continues on allopurinol. When patient presented to the ED today he stated his chest pain had returned. Upon admit he c/o a pressure over the left upper chest area that becomes more painful with palpation in the midclavicular line in the 2nd and 3rd intercostal spaces, but it does not hurt when he moves his left arm. In the mid upper chest area over the sternum patient states that the pain comes and goes, like ?someone is sitting on my chest ?, achy, nonradiating 4/10, better with rest, worsens with activity, goes away when he sleeps, and has been coming and going for the past 3-4 weeks but intensified over the last 4 days he has continue to feel nauseated, lightheaded, and sweaty when the pain occurs. The patient reports that he has a upper cavity infected tooth abscess that his been draining that has been in place for approximately 2-3 months he has been to see his dentist multiple times was placed on amoxicillin for 10 days which he completed approximately 4 days ago. Continues to have pain, discomfort and swelling, with continued drainage that he can taste in his mouth. His dentist is currently away on vacation and he has been unable to get in for removal of the tooth. The patient reports that he has had a history of acid reflux but denies acid taste in his mouth, burning in the esophagus, and takes no medications for this. Patient smokes a half a pack a day and has been smoking for approximately 25 years. Patient also reports that he drink anywhere from 3-4 beers daily, and 6 packs on the weekend for approximately 10 years and quit approximately 2 months ago. Patient denies any cardiac or pulmonary history, reports only a history of gout which she had a recent flare in his left ankle that has resolved but he continues to take allopurinol, takes no other medications. Patient's vitals upon admit patient is slightly febrile temp 99.0?, BP 120/73, HR 66, RR 10, O2 saturation 96% on room air. All patient's laboratory findings were within normal limits CBC, CMP, troponin negative. Patient's chest x-ray was negative for any acute cardiopulmonary processes. 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 x 10-20 years Substance Use Type does not use Meds Home Medications and Allergies Home Medications Medication Instructions Recorded Confirmed Type varicella-zoster glycoE [id number] 50 mcg IM ONCE #1 each 05/01/19 07/09/21 Rx adj(PF) 50 mcg/0.5 mL IM susp, kit (Shingrix (PF)) right wrist splint #1 ea 06/21/20 07/09/21 Rx meloxicam 15 mg tablet 15 mg PO DAILY #90 tab 02/14/21 07/09/21 Rx allopurinol 300 mg tablet 300 mg PO DAILY #90 tab 06/27/21 07/09/21 Rx colchicine 0.6 mg tablet 0.6 mg PO DAILY PRN #90 tab 06/27/21 07/09/21 Rx allopurinol 100 mg tablet 400 mg PO DAILY 07/09/21 07/09/21 History Allergies Allergy/AdvReac Type Severity Reaction Status Date / Time No Known Drug Allergies Allergy Verified 06/30/20 14:14 Review of Systems Review of Systems Narrative: All 12 point systems reviewed with the patient and are negative except otherwise documented. Exam Vital Signs (past 8 hours): - 07/09/21 18:32 07/09/21 18:33 07/09/21 18:38 Temperature 99.0 F Pulse Rate 86 85 76 Respiratory Rate 16 18 Blood Pressure 138/82 138/82 Pulse Oximetry 97 96 99 07/09/21 19:00 07/09/21 19:30 07/09/21 20:00 Temperature Pulse Rate 80 66 66 Respiratory Rate 22 12 10 L Blood Pressure 128/76 127/69 120/73 Pulse Oximetry 96 95 96 Oxygen Delivery Method Room Air Narrative Exam Narrative: General: Patient is a well-developed, well-nourished in no distress at this time. HEENT: Normocephalic, atraumatic, extraocular muscles intact, oral pharynx is clear and mucous membranes are dry. Neck is supple and symmetric, trachea is midline, patient has mild inflammation noted along left jaw line, pre auricular adenopathy and left cervical adenopathy, minimal tenderness with palpation, no thyroid enlargement, nontender, no masses palpated. Negative for JVD Chest: Normal AP diameter and contour without kyphoscoliosis, no nasal flaring, retractions, or tachypneic labored, patient did have pain over the 2nd and 3rd intercostal space on the left side approximately midclavicular line with palpation. Lungs: Auscultation of all lung gonzáles are clear with the exception occansional right upper lobe wheezing. Cardio: S1 & S2 with regular rate and rhythm without murmur, rubs, or gallops, no carotid bruit, no cardiac pulsations present. Abdomen: Soft nontender, negative for organomegaly, or masses. Bowel sounds are present in all 4 quadrants without guarding or rebound, no CVA tenderness. Musculoskeletal: Muscle strength and tone are equal within normal limits, no deformity, crepitus, effusions, cyanosis, clubbing or edema present. Full range of motion intact radial and pedal pulses are normal. Skin: Warm dry and intact without rashes, ulcerations or petechiae. Neuro: Alert and orientated x3, strength is +5/5 in all extremities, sensation to touch intact, no gross deficits noted of cranial nerves. Psych: Patient has a well-kept appearance, appropriate affect, mental status attitude thought context and judgment are appropriate for age. Objective Labs Result Diagrams: 07/09/21 18:38 07/09/21 18:38 Labs: Laboratory Results - last 24 hr 07/09/21 07/09/21 18:38 18:38 WBC 8.2 RBC 4.73 Hgb 15.8 Hct 46.0 MCV 97.3 MCH 33.3 MCHC 34.3 RDW 12.9 Plt Count 181 Neut % (Auto) 56.8 Lymph % (Auto) 30.8 [place] % (Auto) 6.7 Eos % (Auto) 5.0 H Baso % (Auto) 0.7 Neut # (Auto) 4600 Lymph # (Auto) 2500 [place] # (Auto) 500 Eos # (Auto) 400 Baso # (Auto) 100 Sodium 142 Potassium 3.7 Chloride 110 H Carbon Dioxide 24 BUN 16 Creatinine 0.93 Estimated GFR > 60.0 BUN/Creatinine Ratio 17.2 Glucose 132 H Calcium 9.4 Total Bilirubin 0.5 AST 24 ALT 21 Alkaline Phosphatase 73 Total Creatine Kinase 101 CK-MB (CK-2) 0.93 CK-MB (CK-2) Rel Index 0.9 L Troponin I < 0.012 Total Protein 6.6 Albumin 4.0 Globulin 2.6 Albumin/Globulin Ratio 1.5 Lipase 73 Assessment & Plan Assessment & Plan narrative: Patient is a 60-year-old male antony Alexander who is admitted for recurrent chest pain, after repeat visits to the emergency room and PCP. Patient's history of tobacco and alcohol abuse put him at high risk for cardiovascular of event, he has a heart score of 2 and is admitted for chest pain rule out. 1. Acute chest pain-recurrent, acute , present on admission -Rule out myocardial ischemia, ACS, CAD, aortic dissection -Monitor for hypertensive emergencies with acute end-organ damage, ventricular t achycardia, unstable SVT, hypertension, angina or WA, heart failure, renal function. My suspicion for ACS/WA is low though the patient does have risk factors a history of alcohol abuse and current tobacco abuse. The patient's left-sided chest pain I believe to be costochondritis, I also suspect possible acid reflux and I have ordered a GI cocktail. I also suspect patient's dental abscess infection is contributing to the overall clinical picture and addresses below. -patient's vital signs and labs were all unremarkable with a negative troponin upon admit, EKG normal sinus rhythm with a rate of [address] or T-wave changes. Unchanged from previous EKG. Patient's triglycerides 246, HDL 32, but total cholesterol was 168. Patient's proBNP was within normal limits. -Bird Vasc score:0 , heart score:2 -patient admitted on tele, V/S Q 4, I&O Q8, weight daily, diet:Regular -sublingual nitro glycerin 0.4 mg, aspirin 325 mg, as needed -Goals:O2 to keep O2 sats greater than 92%, potassium > 4 and Mag > 2 -trend troponin x3, telemedicine -stress test and echo ordered for tomorrow -GI cocktail once to evaluate if it improves his chest pain at all. -labs lipid panel, PT/INR/PTT, Mag -recommend upon discharge patient follow-up with Gastroenterology for further evaluation. 2. Dental abscess, with dental caries, acute on chronic, present on admission -upper front left tooth -SOFA:1 patient is not septic, Temp 99.0 on admit -patient reports that he has had a dental abscess-infection for 2-3 months that is actively draining in his mouth, and patient finished 10 day amoxicillin 4 days ago. Four days ago is when his chest pain increased in severity. Patient's dentist is out of town on vacation and he is unable to get in and see him. I suspect that this is contributing to the patient's clinical picture. -Blood cultures x2 pending -discussed smoking cessation, patient to swish and spit salt water after eating. -treat with clindamycin 600 mg IV Q 8 hours plus levofloxacin 750 mg Q 24 hours- based on up-to-date recommendation -normal saline at 84 cc/HR for hydration -patient will need outpatient follow-up with his dentist. 3. Acute costochondritis, mild, acute, present on admission -left 2nd and 3rd intercostal space at [facility] -Ordered Toradol 30mg, Voltaren gel to chest area -patient education provided regarding costochondritis 2. Gout, chronic, present on admission -patient's left ankle flare has resolved -continue patient's allopurinol Code status: Full code COVID vaccination: Moderna April 2021 Surrogate decision maker: Nevaeh Alexander (spouse) DVT/VTE prophylaxis: Lovenox 40 mg and SCDs Estimated length of stay less than 2 midnights I have utilized all available immediate resources to obtain, update, or review the patient's current medications. I confirmed that the patient's advanced care plan is present, Code status is documented and/or surrogate decision maker is listed in the patient's medical record. Scores GCS Carlin coma scale eye opening: Spontaneous [place] coma scale verbal response: Orientated [place] coma scale motor response: Obey commands [place] coma scale total score: 15 CHADS-VASc Congestive heart failure: no Hypertension: no Age 75 years or older: no Diabetes mellitus: no Stroke, TIA, or TE: no Vascular disease: no Age 65 to 74 years: no Sex category (female): Male CHADS-VASc Score: 0 Wells' Criteria for PE Clinical signs and symptoms of DVT: No PE is #1 Dx or equally likely: No Heart rate > 100: No Immobilization at least 3 days or surg in previous 4 weeks: No History of PE or DVT: No Hemoptysis: No Malignancy w/Treatment within 6 months or palliative: No Wells' PE Score total: 0
[2021-07-09 20:52] LABS: COVID19 - ADMIT (NP swab/PCR) Negative (Negative)
[2021-07-09 21:02] LABS: Magnesium 1.9 mg/dL (1.6-2.3)
[2021-07-09 21:03] LABS: Cholesterol 168 mg/dL (140-199); HDL Cholesterol 32 mg/dL (40-60); LDL Cholesterol Calculated 87 mg/dL (<100); Triglycerides 246 mg/dL (35-150)
--- NOTE | 2021-07-09 21:07 | PC.NURSE ---
Report received from Roberto ED RN. Patient arrived on stretcher at 2056, ambulatory. C/o left chest pain 03/04, fairly steady. No other complaints at this time. Tele applied. VSS. Hypertensive at 156/94; otherwise VSS. Oriented to room, call light, rights and responsibilities.
[2021-07-09 21:12] LABS: NT-proBNP (BNP-Adult 18+) 48 pg/mL (<125)
[2021-07-09 21:36] LABS: Troponin I < 0.012 ng/mL (0.01-0.034)
[2021-07-09] MEDS: SODIUM CHLORIDE 0.9% 1,000 ML 84 ML IV (22:26)
[2021-07-09] MEDS: MAG HYDROX/ALUMINUM/SIMETH SUS 20 ML, LIDOCAINE VISCOUS 2% 15 ML PO (22:31)
[2021-07-09] MEDS: KETOROLAC 30 MG/ML VIAL IV (22:43)
[2021-07-09] MEDS: CLINDAMYCIN 600 MG/50 ML PIGGYBACK 50 MG IV (22:43)
[2021-07-09 23:00] LABS: Procalcitonin 0.11 ng/mL (<0.5)
[2021-07-09] MEDS: levoFLOXacin 750 MG/150 ML PIGGYBACK 100 MG IV (23:47)
[2021-07-10] VITALS (7 sets, daily range): BP systolic 107–122; BP diastolic 58–76; PULSE 53–72; RESP 14–16; TEMP 36.4–37; O2SAT 94–97
--- NOTE | 2021-07-10 01:36 | PC.NURSE ---
Patient is alert and oriented. Breath sounds CTA with RA sat of 96%. HRR w/telemetry reading of SR; denies any current chest pain or SOB. Denies nausea. BT present and abdomen is soft. Denies dysuria, frequency or urgency with urination. Is able to move self in bed. Denies any weakness or unsteadiness but due to having IVF infusing discussed with patient to call for assistance when getting out of bed. Bilateral calf SCD's applied at time of assessment but approximately 1 hour later patient requested they be removed as is unable to sleep with them on; discussed importance of ankle waving. Fall risk score is moderate and bed alarm is activated. Knows he will be NPO at 0500 in anticipation of stress test as time of test is currently unknown; verbalizes understanding.
[2021-07-10 05:46] LABS: INR 1.2 (0.9-1.3); Prothrombin Time 13.1 SECONDS (10.1-12.7)
[2021-07-10 05:48] LABS: PTT Partial Thromboplastin Tim 38 SECONDS (26.4-36.2)
[2021-07-10 06:02] LABS: Troponin I < 0.012 ng/mL (0.01-0.034)
[2021-07-10] MEDS: CLINDAMYCIN 600 MG/50 ML PIGGYBACK 50 MG IV ×2 (06:05→14:32)
[2021-07-10] MEDS: ENOXAPARIN 40 MG/0.4 ML SYRINGE SUBCUT (08:35)
--- NOTE | 2021-07-10 09:01 | CM.DANOTE ---
DCP: Case received, EMR reviewed and met with patient. , Diandra was at bedside. Introduced self and role. Was able to obtain information regarding patient's baseline activity status prior to his hospitalization. DCP assessment completed with information currently available. Patient is a 60 year old male who admitted yesterday evening to the care of the hospitalist team. PCP: CIRILO Hughes. Payer: confirmed: Out of State [facility]. Patient came to the hospital via private vehicle secondary to having some left sided chest discomfort. He had recently seen his primary care provider regarding this, and was scheduled for an outpatient stress test. His symptoms had worsened, and had not resolved, so he came here to the hospital. He is having a cardiac work up today, and is scheduled for a stress test. Patient has history of smoking, and drinks 3-4 beers daily. 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 Met with patient and in room. Both of them reside here in [place]. He was laying in bed resting, quiet, but alert and oriented. He is independent at his baseline, and confirmed that he works at [employer]. Confirmed that Aminata Wilcox is his primary care provider. P: DCP to continue to follow. Patient should be able to go home when deemed medically stable, he could possibly discharge today if his tests hospitalist nocturnist physician negative. Archana Schmidt RN/Fnp
--- NOTE | 2021-07-10 10:52 | PC.NURSE ---
Was notified from [facility] that patient's HR was as low as 47 Sinus bradycardia, patient had been noted at SB in 50 and 60's previously. Patient seen and was sleeping soundly on left side. Denies complaints. VSS. Dr. Carpenter notified. Will continue to follow, patient has call light within reach.
[2021-07-10 15:53] LABS: TSH w/ Reflex to FT4 1.17 uIU/mL (0.47-4.68)
--- NOTE | 2021-07-10 17:21 | P.DS_ITS ---
History of Present Illness History of Present Illness Chief complaint: CHEST PAIN/LIGHTHEADED/NAUSEA Narrative: Per Shellie Campos: Patient is a 60-year-old male antony Alexander who presented to the ED w ith continueing chest pain. Patient 1st presented to the ED on 06/15/21 complaining of epigastric pain on going over 4 days. Pain while doing yard work, fairly constant is does not seem to get any worse with exertion or better with rest, nonradiating, and some shortness of breath with exertion but not significantly. Patients EKG was unremarkable, chest x-ray unremarkable. Discharged with diagnosis of atypical chest pain, recommendations for stress test and further workup. Patient seen by PCP on 07/24/2021: Patient stated his pain resolved after about two weeks. He denied any further epigastric, chest pain or any further associated symptoms. His PCP ordered stress test & echo which have yet to be scheduled/completed. Abdominal ultrasound reveals prominent fatty liver, his liver enzymes had returned to normal however a referral to Gastroenterology was placed. Patient also complains of gout flare, left ankle and continues on allopurinol. When patient presented to the ED today he stated his chest pain had returned. Upon admit he c/o a pressure over the left upper chest area that becomes more painful with palpation in the midclavicular line in the 2nd and 3rd intercostal spaces, but it does not hurt when he moves his left arm. In the mid upper chest area over the sternum patient states that the pain comes and goes, like ?someone is sitting on my chest ?, achy, nonradiating 4/10, better with rest, worsens with activity, goes away when he sleeps, and has been coming and going for the past 3-4 weeks but intensified over the last 4 days he has continue to feel nauseated, lightheaded, and sweaty when the pain occurs. The patient reports that he has a upper cavity infected tooth abscess that his been draining that has been in place for approximately 2-3 months he has been to see his dentist multiple times was placed on amoxicillin for 10 days which he completed approximately 4 days ago. Continues to have pain, discomfort and swelling, with continued drainage that he can taste in his mouth. His dentist is currently away on vacation and he has been unable to get in for removal of the tooth. The patient reports that he has had a history of acid reflux but denies acid taste in his mouth, burning in the esophagus, and takes no medications for this. Patient smokes a half a pack a day and has been smoking for approximately 25 years. Patient also reports that he drink anywhere from 3-4 beers daily, and 6 packs on the weekend for approximately 10 years and quit approximately 2 months ago. Patient denies any cardiac or pulmonary history, reports only a history of gout which she had a recent flare in his left ankle that has resolved but he continues to take allopurinol, takes no other medications. Patient's vitals upon admit patient is slightly febrile temp 99.0?, BP 120/73, HR 66, RR 10, O2 saturation 96% on room air. All patient's laboratory findings were within normal limits CBC, CMP, troponin negative. Patient's chest x-ray was negative for any acute cardiopulmonary processes. Discharge Providers Provider Date of admission: 07/09/21 20:41 Discharge Date: 07/10/21 Primary care physician: CIRILO Hughes Discharge provider: Kenneth Carpenter MD Summary Hospital Course Discharge Diagnosis: 1. Acute chest pain, likely costochondritis 2. Dental abscess 3. Gout Hospital Course: Mr. Alexander was admitted with recurrent chest pain that had been occurring for weeks. He was noted to have it constant and reproducible with palpation. He had normal troponins, EKG with no ischemia, and a stress test that was low probability. He likely had costochondritis and was recommended to take ibuprofen consistently. He was recommended to follow up with his PCP within one week. He is scheduled to follow up with his dentist tomorrow for his tooth and he will be left off antibiotics for now as he has scheduled follow up. Exam Vital Signs (past 8 hours): - 07/10/21 09:59 07/10/21 10:41 07/10/21 11:45 Temperature 97.9 F Pulse Rate 60 72 Respiratory Rate 15 14 Blood Pressure 107/58 L 112/63 Pulse Oximetry 95 97 07/10/21 11:48 07/10/21 15:32 Temperature 97.5 F L Pulse Rate 53 L Respiratory Rate 16 Blood Pressure 120/67 Pulse Oximetry 96 95 Oxygen Delivery Method Room Air Oxygen Flow Rate 0 Narrative Exam Narrative: General: no acute distress Lungs: clearly bilaterally Cardio: regular rate and rhythm without murmur Abdomen: Soft nontender, nondistended, no organomegaly Objective Labs Result Diagrams: 07/09/21 18:38 07/09/21 18:38 Labs: Laboratory Results - last 24 hr 07/09/21 07/09/21 07/09/21 18:38 18:38 18:38 WBC 8.2 RBC 4.73 Hgb 15.8 Hct 46.0 MCV 97.3 MCH 33.3 MCHC 34.3 RDW 12.9 Plt Count 181 Neut % (Auto) 56.8 Lymph % (Auto) 30.8 [place] % (Auto) 6.7 Eos % (Auto) 5.0 H Baso % (Auto) 0.7 Neut # (Auto) 4600 Lymph # (Auto) 2500 [place] # (Auto) 500 Eos # (Auto) 400 Baso # (Auto) 100 PT INR APTT Sodium 142 Potassium 3.7 Chloride 110 H Carbon Dioxide 24 BUN 16 Creatinine 0.93 Estimated GFR > 60.0 BUN/Creatinine Ratio 17.2 Glucose 132 H Calcium 9.4 Magnesium Total Bilirubin 0.5 AST 24 ALT 21 Alkaline Phosphatase 73 Total Creatine Kinase 101 CK-MB (CK-2) 0.93 CK-MB (CK-2) Rel Index 0.9 L Troponin I < 0.012 NT-Pro-B Natriuret Pep Total Protein 6.6 Albumin 4.0 Globulin 2.6 Albumin/Globulin Ratio 1.5 Triglycerides 246 H Cholesterol 168 LDL Cholesterol, Calc 87 HDL Cholesterol 32 L Lipase 73 Procalcitonin TSH SARS-CoV-2 (PCR) 07/09/21 07/09/21 07/09/21 18:38 19:56 21:05 WBC RBC Hgb Hct MCV MCH MCHC RDW Plt Count Neut % (Auto) Lymph % (Auto) [place] % (Auto) Eos % (Auto) Baso % (Auto) Neut # (Auto) Lymph # (Auto) [place] # (Auto) Eos # (Auto) Baso # (Auto) PT INR APTT Sodium Potassium Chloride Carbon Dioxide BUN Creatinine Estimated GFR BUN/Creatinine Ratio Glucose Calcium Magnesium 1.9 Total Bilirubin AST ALT Alkaline Phosphatase Total Creatine Kinase CK-MB (CK-2) CK-MB (CK-2) Rel Index Troponin I < 0.012 NT-Pro-B Natriuret Pep 48 Total Protein Albumin Globulin Albumin/Globulin Ratio Triglycerides Cholesterol LDL Cholesterol, Calc HDL Cholesterol Lipase Procalcitonin TSH SARS-CoV-2 (PCR) Negative 07/09/21 07/10/21 07/10/21 21:05 05:05 05:05 WBC RBC Hgb Hct MCV MCH MCHC RDW Plt Count Neut % (Auto) Lymph % (Auto) [place] % (Auto) Eos % (Auto) Baso % (Auto) Neut # (Auto) Lymph # (Auto) [place] # (Auto) Eos # (Auto) Baso # (Auto) PT 13.1 H INR 1.2 APTT 38 H Sodium Potassium Chloride Carbon Dioxide BUN Creatinine Estimated GFR BUN/Creatinine Ratio Glucose Calcium Magnesium Total Bilirubin AST ALT Alkaline Phosphatase Total Creatine Kinase CK-MB (CK-2) CK-MB (CK-2) Rel Index Troponin I < 0.012 NT-Pro-B Natriuret Pep Total Protein Albumin Globulin Albumin/Globulin Ratio Triglycerides Cholesterol LDL Cholesterol, Calc HDL Cholesterol Lipase Procalcitonin 0.11 TSH SARS-CoV-2 (PCR) 07/10/21 05:05 WBC RBC Hgb Hct MCV MCH MCHC RDW Plt Count Neut % (Auto) Lymph % (Auto) [place] % (Auto) Eos % (Auto) Baso % (Auto) Neut # (Auto) Lymph # (Auto) [place] # (Auto) Eos # (Auto) Baso # (Auto) PT INR APTT Sodium Potassium Chloride Carbon Dioxide BUN Creatinine Estimated GFR BUN/Creatinine Ratio Glucose Calcium Magnesium Total Bilirubin AST ALT Alkaline Phosphatase Total Creatine Kinase CK-MB (CK-2) CK-MB (CK-2) Rel Index Troponin I NT-Pro-B Natriuret Pep Total Protein Albumin Globulin Albumin/Globulin Ratio Triglycerides Cholesterol LDL Cholesterol, Calc HDL Cholesterol Lipase Procalcitonin TSH 1.17 SARS-CoV-2 (PCR) [facility] Medical History (Updated 07/09/21 @ 22:49 by RAY Lyons) Elevated cholesterol Elevated liver enzymes Fatty infiltration of liver (05/2021) Gout History of alcohol abuse Kidney stones Knee pain, bilateral Right wrist pain Tobacco abuse Surgical History (Updated 07/09/21 @ 22:49 by RAY Lyons) History of carpal tunnel surgery of right wrist Family History (Updated 07/09/21 @ 22:51 by RAY Lyons) Mother Cancer Father Alzheimer's dementia Social History household members: spouse and children Smoking Status: Current every day smoker Tobacco: How many years used: 30 quit status: considering quitting (Patient given smoking cessation handouts) second hand exposure: No alcohol intake: former substance use type: does not use Discharge Plan Discharge Plan Patient Disposition: Home Provider Discharge Comment: Mr. Alexander came in to the hospital with chest pain. He had blood tests done, and an EKG which showed no heart attack. He had a stress test done that did not show any evidence of blockage in his arteries. He did have some tenderness with touching his ribs which is likely related to some inflammation in his ribs and cartilage. He was encouraged to take pain medicine for this and follow up with his PCP. He also has drainage from a tooth, he is given antibiotics for this and encouraged to follow up as soon as possible with his dentist. Discharge orders & Medications Prescriptions: Continued meloxicam 15 mg tablet 15 mg PO DAILY Qty: 90 RF: 1 Shingrix (PF) 50 mcg/0.5 mL suspension for reconstitution 50 mcg IM ONCE Qty: 1 RF: 0 colchicine 0.6 mg tablet 0.6 mg PO DAILY PRN (Reason: Gout flare) Qty: 90 RF: 2 allopurinol 300 mg tablet 300 mg PO DAILY Qty: 90 RF: 2 allopurinol 100 mg tablet 400 mg PO DAILY RF: 0 No Action (DME) right wrist splint Qty: 1 RF: 0 Follow up/Referrals: Aminata Wilcox ARNP [Primary Care Provider] - Diet/Activity/Treatments Diet: Regular Discharge Data Primary Care Provider: Aminata Wilcox Attending Provider: Shellie Campos [facility] The patient has current or prior documentation of left ventricular ejection fraction (LVEF) less than 40%, or moderate or severely depressed left ventricular systolic function.: No
--- NOTE | 2021-07-10 19:19 | DI.NM.S_ITS ---
DATE OF SERVICE: 07/10/2021 PROCEDURE: Exercise perfusion study. INDICATION: Chest pain with underlying tobacco abuse. RADIOPHARMACEUTICAL: 24.8 millicurie technetium-99m Myoview IV was injected at stress and 10.2 millicurie technetium-99m Myoview IV was injected at rest. CARDIAC STRESS: The patient underwent exercise perfusion study under the supervision of an attending staff. The patient walked on Александр protocol for 9 minutes and achieved 86 percent of target heart rate, normal blood pressure response, LARS 0 percent on the active scale and 10.1 METs of workload. The patient did not have any chest pain. Baseline rhythm was sinus. During stress, there were no convincing ischemic changes or significant arrhythmias seen. RAW DATA: There is increased subdiaphragmatic activity. GATED STUDY: Resting LV ejection fraction 65 percent without any obvious wall motion abnormalities. Resting end-diastolic volume 125 mL. TID ratio 0.85, which is within normal limits. Lung/heart ratio 0.39, which is within normal limits. MYOCARDIAL PERFUSION SCAN: Stress supine, resting supine and stress prone images were compared to each other. Stress supine and resting supine images revealed moderate-size, mild to moderately decreased perfusion of inferior wall extending into the inferoapex, which got completely resolved during prone images, suggestive of diaphragmatic tissue attenuation artifact. On prone images, there is mildly decreased perfusion of distal anteroseptum, which was not seen during stress supine images or resting supine images. There is some shifting tissue attenuation artifact, as well. CONCLUSION: I will call this study likely a normal myocardial perfusion study with evidence of diaphragmatic tissue attenuation artifact, which got resolved during the stress prone images. There was some shifting attenuation artifact, as well. Good exercise tolerance. No ischemic electrocardiographic changes. No significant arrhythmias. Normal hemodynamic response. No anginal symptoms. Overall, this is a low-risk exercise perfusion study. Ra Alexander - ANDREA/lexx/tirso doc#: [id number]/job#: [id number] dd: 07/10/2021 17:15:00 dt: 07/10/2021 19:03:00 DICTATING MD/COPIES TO: Wilfrid Soriano MD COPIES MNE: MARK;
--- NOTE | 2021-07-10 19:36 | PC.NURSE ---
Discharge Note Patient A&O, VSS, RA no complaints of pain/discomfort. Discharge packet reviewed with patient along with follow-up instructions, all questions/concerns addressed. PIV/TELE discontinued. All belongings packed and given to patient along with discharge packet. Patient taken down via wheelchair to POV.
== END 2021-07-10 18:00 | disposition home or self-care (01) ==
LOC: ED 20:36 → AC 20:41
PROVIDERS: Internal Medicine; Admitting Provider Nurse Practitioner Family; Emergency Provider Emergency Medicine; PCP Nurse Practitioner Family; Visit Provider Nurse Practitioner Family
DX: R07.9 Chest pain, unspecified (principal); R11.0 Nausea; K04.7 Periapical abscess without sinus; M10.9 Gout, unspecified; F17.210 Nicotine dependence, cigarettes, uncomplicated; Z20.822 Contact with and (suspected) exposure to COVID-19
CPT/HCPCS: 36415; 71045; 78452; 80053; 80061; 82550; 82553; 83690; 83735; 83880; 84145; 84443; 84484; 85025; 85610; 85730; 87040; 87635; 93005; 93010; 93017; 94760; 96365; 96366; 96367; 96372; 96375; 99284; 99406; C9803; G0378; A9502; J1650; J1885; J1956

== ENCOUNTER → 2023-08-09 08:44 | Outpatient (CLI) | payer BC, SELFPAY ==
[2021-07-09 21:00] VITALS: BMI 27.1
[2023-08-09 10:37] LABS: Add Manual Diff / Slide Review NO; Basophils Absolute Auto 100 /uL (0-100); Basophils Percent Auto 0.8 % (0-2); Eosinophils Absolute Auto 300 /uL (0-450); Eosinophils Percent Auto 4.6 % (2-4); Hematocrit 48.2 % (41-53); Hemoglobin 16.7 g/dL (13.5-17.5); Lymphocytes Absolute Auto 2000 /uL (1100-4500); Lymphocytes Percent Auto 28.4 % (25-40); Mean Corpuscular HGB Conc 34.7 % (30-36); Mean Corpuscular Hemoglobin 32.7 PG (26-34); Mean Corpuscular Volume 94.4 fL (80-100); Monocytes Absolute Auto 600 /uL (0-900); Neutrophils Absolute Auto 4100 /uL (1500-7000); Neutrophils Percent Auto 58.2 % (50-75); Platelet Count 181 X10^3/uL (150-400); Red Blood Cell Count 5.11 X10^6/uL (4.5-5.9); Red Cell Distribution Width 12.8 % (11.6-14.8)
[2023-08-09 10:56] LABS: Alanine Aminotransferase 76 IU/L (<50); Albumin 4.3 g/dL (3.5-5.0); Albumin Globulin Ratio 1.6 (1.0-2.8); Alkaline Phosphatase 63 U/L (38-126); Aspartate Aminotransferase 43 IU/L (17-59); BUN Creatinine Ratio 17.5 (6-22); Blood Urea Nitrogen 17 mg/dL (9-20); C-Reactive Protein Quant < 0.5 mg/dL (<1.0); Carbon Dioxide 23 mmol/L (22-32); Chloride 107 mmol/L (98-107); Cholesterol 175 mg/dL (140-199); Estimated Glomerular Filt Rate > 60 mL/min (>60); Globulin 2.7 g/dL (1.7-4.1); Glucose 91 mg/dL (80-110); HDL Cholesterol 39 mg/dL (40-60); HEMOLYSIS < 15 (0-50); LDL Cholesterol Calculated 81 mg/dL (<100); Potassium 4.8 mmol/L (3.4-5.1); Sodium 140 mmol/L (137-145); Triglycerides 274 mg/dL (35-150)
== END ==
PROVIDERS: PCP Family Medicine; Referring Provider Family Medicine; Visit Provider Family Medicine
DX: I10 Essential (primary) hypertension (principal); E78.2 Mixed hyperlipidemia
CPT/HCPCS: 36415; 80053; 80061; 84550; 85025; 86140

== ENCOUNTER → 2024-02-04 08:04 | Outpatient (CLI) | payer BC, SELFPAY ==
[2021-07-09 21:00] VITALS: BMI 27.1
[2024-02-04 09:31] LABS: BUN Creatinine Ratio 23.4 (6-22); Blood Urea Nitrogen 25 mg/dL (9-20); Calcium 10.1 mg/dL (8.4-10.2); Carbon Dioxide 23 mmol/L (22-32); Chloride 110 mmol/L (98-107); Estimated Glomerular Filt Rate > 60 mL/min (>60); Glucose 118 mg/dL (80-110); HEMOLYSIS < 15 (0-50); Potassium 5.1 mmol/L (3.4-5.1); Sodium 142 mmol/L (137-145)
== END ==
LOC: LAB 08:05
PROVIDERS: PCP Family Medicine; Referring Provider Family Medicine; Visit Provider Family Medicine
DX: I10 Essential (primary) hypertension (principal); M10.9 Gout, unspecified
CPT/HCPCS: 36415; 80048; 84550

== ENCOUNTER → 2025-01-22 07:52 | Outpatient (CLI) | payer BC, SELFPAY ==
[2021-07-09 21:00] VITALS: BMI 27.1
[2025-01-22 08:51] LABS: Hemoglobin A1C% w Est Avg Glu 5.4 % (4.0-6.0)
[2025-01-22 08:54] LABS: Cholesterol 170 mg/dL (140-199); HDL Cholesterol 39 mg/dL (40-60); LDL Cholesterol Calculated 87 mg/dL (<100); Triglycerides 219 mg/dL (35-150); Uric Acid 5.6 mg/dL (3.5-8.5)
[2025-01-22 09:36] LABS: HIV 1 & 2 Ab/Ag 4th Gen Combo NEGATIVE (NEGATIVE)
== END ==
PROVIDERS: PCP Family Medicine; Referring Provider Family Medicine; Visit Provider Family Medicine
DX: Z11.4 Encounter for screening for human immunodeficiency virus [HIV] (principal); E78.2 Mixed hyperlipidemia; I10 Essential (primary) hypertension; M10.9 Gout, unspecified; R73.01 Impaired fasting glucose
CPT/HCPCS: 36415; 80061; 83036; 84550; 87389

== ENCOUNTER → 2025-03-22 13:04 | Outpatient (CLI) | payer BC, SELFPAY ==
[2021-07-09 21:00] VITALS: BMI 27.1
--- NOTE | 2025-03-22 13:05 | DI.MRI.S_ITS ---
PROCEDURE: MR HEAD/BRAIN WO CON INDICATIONS: headache x 6 months, scalp numbness TECHNIQUE: Noncontrast axial T1 spin echo, axial T2 fast spin echo, sagittal and axial FLAIR, coronal T2 fast spin echo, axial gradient echo, axial diffusion and ADC through the brain. COMPARISON: None. FINDINGS: Image quality: Excellent. CSF Spaces: Basal cisterns are patent. No extra-axial fluid collections. Ventricles are normal in size and shape. Brain: No intracranial masses or hemorrhage. Mcdowell/white matter interface is normal. Brainstem appears normal. Diffusion-weighted images demonstrate no acute infarct. No chronic ischemic insults. Normal intravascular flow voids are present. Skull and face: Calvarium has normal marrow signal. Orbits appear normal. Sinuses: Sinuses and mastoids are clear. IMPRESSION: No acute intracranial abnormalities. Age-appropriate appearance of the brain. Dictated by: Fransisco Goss M.D. on 03/22/2025 at 15:31 Approved by: Fransisco Goss M.D. on 03/22/2025 at 15:34
== END ==
LOC: MRI 13:05
PROVIDERS: PCP Family Medicine; Referring Provider Family Medicine; Visit Provider Family Medicine
DX: R51.9 Headache, unspecified (principal); R06.83 Snoring
CPT/HCPCS: 70551